=== PATIENT | female | born 2005 | race Caucasian/White ===

== ENCOUNTER 2023-06-09 10:20 | Emergency (ER) | payer OTHER, SELFPAY ==
[2023-06-09 10:37] VITALS: BP 118/79; PULSE 64; RESP 20; TEMP 36.3; O2SAT 100
[2023-06-09 10:41] VITALS: BP 118/79; PULSE 64; RESP 20; TEMP 36.3; O2SAT 100
--- NOTE | 2023-06-09 11:13 | ED.URI ---
HPI - URI/Sore Throat General Chief Complaint: Upper Respiratory Infection Stated Complaint: Congestion Time Seen by Provider: 06/09/23 10:50 Source: patient Mode of arrival: ambulatory Limitations: no limitations History of Present Illness HPI Narrative: Pily is a 18-year-old female patient presenting to the clinic today with complaints of cough and congestion times 6 days. She denies any fever or chills recently. [place] slightly feverish with some body aches at the beginning of her illness. No known exposure to anyone with COVID, flu, or strep. MD elicited complaint: cough and nasal congestion Related Data Home Medications Medication Instructions Recorded Confirmed norethindrone 1 mg-ethinyl 1 tablet PO DAILY 06/09/23 06/09/23 estradiol 20 mcg (21)-iron 75 mg (7) tablet (05/17 (28)) Allergies Allergy/AdvReac Type Severity Reaction Status Date / Time No Known Allergies Allergy Unverified 06/09/23 10:41 Review of Systems Review of Systems: Pertinent positives per HPI. Patient denies any fever, chills, rash, headache, visual changes, dizziness, shortness of breath, chest pain, palpitations, nausea, vomiting, diarrhea, constipation, abdominal pain, or any urinary issues. PMFSH Comments At the time of my signature, I reviewed and agree with the nursing past medical, surgical, social, and family history. There is no relevant family history pertinent to the patient complaint. Exam Narrative: General: Well-developed, well nourished, in no apparent distress Head: Normocephalic, atraumatic Eyes: Pupils equally round and reactive to light bilaterally, EOM intact, sclera and conjunctive clear, no discharge, lids normal Ears: TMs intact and clear, ear canals clear, no drainage, grossly hearing normal. Nose: Nares patent, clear discharge, no inflammation, no sinus tenderness. Mouth: Oral pharynx without lesions or masses, good dentition, MMM. Neck: Supple, trachea midline, no enlargement of anterior or posterior cervical nodes, no thyroid masses or goiter palpable. Cardio: Regular rate and rhythm, s1 and s2 normal, no murmur appreciated. Resp: Clear to auscultation bilaterally, no rhonchi, rales, wheezing or rubs Course Course Emergency Course: Portions of this record may have been created with voice recognition software. Level of Care: Express Care Visit Vital Signs Vital signs: Vital Signs Temperature 36.3 C L 06/09/23 10:37 Pulse Rate 64 06/09/23 10:37 Respiratory Rate 20 06/09/23 10:37 Blood Pressure 118/79 06/09/23 10:37 Pulse Oximetry 100 06/09/23 10:37 Oxygen Delivery Room Air 06/09/23 10:37 Temperature 36.3 C L 06/09/23 10:41 Pulse Rate 64 06/09/23 10:41 Respiratory Rate 20 06/09/23 10:41 Blood Pressure 118/79 06/09/23 10:41 Pulse Oximetry 100 06/09/23 10:41 Oxygen Delivery Room Air 06/09/23 10:41 Vital signs reviewed MDM - URI/Sore Throat MDM Narrative Medical decision making narrative: At the time of visit patient is resting comfortably on the exam table. Patient appears to be nontoxic. Plan: I suspect patient has URI. Will send in prescription for prednisone as patient is getting ready to leave for [place] on a plane. Supportive measures were discussed with the patient and they voiced understanding discharge instructions and agrees to treatment plan. Return precautions reviewed Differential Diagnosis Differential diagnosis: Likely upper respiratory infection, otitis media, sinusitis, viral infection, bronchitis, influenza, pharyngitis and other (COVID) Discharge Plan Discharge Clinical Impression: Upper respiratory infection Patient Disposition: Home, Self-Care Condition: Stable Instructions: Antibiotic Form, Upper Respiratory Infection (ED) Additional Instructions: Take prescription medications only as prescribed-prednisone Increase fluids and stay well hydrated Tylenol/motrin for pain/fever
== END 2023-06-09 11:23 | disposition home or self-care (01) ==
PROVIDERS: Emergency Provider Nurse Practitioner Family; PCP Nurse Practitioner Family
DX: J06.9 Acute upper respiratory infection, unspecified (principal)
CPT/HCPCS: 99203; G0463